=== PATIENT | female | born 1970 | race African-American/Black ===

== ENCOUNTER 2019-01-24 06:57 | Day surgery (SDC) | payer OTHER | END 2019-01-24 09:00 | disposition home or self-care (01) | LOC: JASU-ENDO 06:57 | PROVIDERS: ATTEND Internal Medicine Gastroenterology | DX: Z53.8 Procedure and treatment not carried out for other reasons (principal) | CPT/HCPCS: 84703 ==

== ENCOUNTER 2024-05-30 05:01 | Day surgery (SDC) | payer OTHER ==
[2024-05-30 09:19] VITALS: BMI 33.4
[2024-05-30 10:44] VITALS: TEMP 98.8
[2024-05-30 11:13] VITALS: BP 112/67; PULSE 74; RESP 18
== END 2024-05-30 11:16 | disposition home or self-care (01) ==
LOC: JASU-ENDO 05:01
PROVIDERS: ATTEND Internal Medicine Gastroenterology
PROC: 0DJD8ZZ Inspection of Lower Intestinal Tract, Via Natural or Artificial Opening Endoscopic (ICD-10-PCS; principal; 2024-05-30 10:00)
DX: Z12.11 Encounter for screening for malignant neoplasm of colon (principal)
CPT/HCPCS: 81025; 82962